=== PATIENT | male | born 1950 | race Caucasian/White ===

== ENCOUNTER 2021-07-11 12:00 | Inpatient (IN) ==
[2021-07-11] MEDS ORDERED: Isovue-370 500 ML BOTTLE IVP ONE (12:25)
[2021-07-11 12:44] LABS: VBG HCO3 25 mEq/L (21-27); VBG PCO2 46 mmHg (41-51); VBG PH 7.34 pH Units (7.32-7.42); VBG PO2 78 mmHg (25-50)
[2021-07-11 12:45] LABS: Basophils # 0.1 K/mcL (0.0-0.2); Basophils % 0.5 %; Eosinophils # 0.1 K/mcL (0.0-0.6); Eosinophils % 0.9 %; Hematocrit 27.8 % (37.5-50.1); Hemoglobin 8.7 g/dL (12.9-16.9); Immature Granulocytes % 0.8 % (0-4); Lymphocytes # 0.7 K/mcL (0.6-4.6); Lymphocytes % 5.5 %; Mean Corpuscular HGB Conc 31.3 g/dL (31.6-35.5); Mean Corpuscular Hemoglobin 28.9 pg (28.0-33.3); Mean Corpuscular Volume 92.4 fL (83.0-100.0); Mean Platelet Volume 9.8 fL (9.4-12.4); Monocytes % 7.7 %; Neutrophils # 11.2 K/mcL (1.6-8.9); Platelet Count 302 K/mcL (140-400); Red Blood Count 3.01 M/mcL (4.19-5.50); Red Cell Distribution Width 14.2 % (11.5-14.5); Segmented Neutrophils % 84.6 %; White Blood Count 13.2 K/mcL (4.3-11.1)
[2021-07-11 12:55] LABS: Prothrombin Time 11.4 Seconds (9.4-12.1)
[2021-07-11 12:58] LABS: Activated Partial Thrombo Time 44.2 Seconds (26.0-36.0)
[2021-07-11 13:24] LABS: Bacteria,Urine Few per hpf (None-Few); Bilirubin,Urine Negative (Negative); Blood,Urine Negative (Negative); Clarity,Urine Clear (Clear); Color,Urine Yellow (Yellow); Glucose,Urine (UA) >=1000 mg/dL (Normal); Ketones,Urine Negative (Negative); Leukocyte Esterase,Urine Negative (Negative); Mucus,Urine Few per lpf (None-Few); Nitrite,Urine Negative (Negative); PH,Urine 5.5 pH Units (5.0-8.0); Protein,Urine 100 mg/dL (Neg-Trace); RBC,Urine 0-3 per hpf (0-3); Specific Gravity,Urine 1.021 (1.010-1.025); Squamous Epithelial Cell,Urine Few per hpf (None-Few); Urobilinogen,Urine Normal (Normal); WBC,Urine 0-3 per hpf (0-3)
[2021-07-11 13:25] LABS: Sperm,Urine Present per hpf (None Seen)
[2021-07-11 13:31] LABS: Albumin 3.3 g/dL (3.5-5.7); Albumin/Globulin Ratio 1.3 (1.1-2.2); Bilirubin,Total 0.4 mg/dL (0.3-1.0); Calcium 9.3 mg/dL (8.6-10.3); Globulin 2.5 g/dL (2.4-3.5); Potassium 5.2 mEq/L (3.5-5.1); Total Protein 5.8 g/dL (6.4-8.9)
[2021-07-11 14:17] LABS: Influenza A PCR Negative (Negative); Influenza B PCR Negative (Negative); Resp. Syncytial Virus PCR Negative (Negative)
[2021-07-11 14:18] LABS: SARS-CoV-2 by PCR (In House) Negative (Negative)
[2021-07-11] MEDS ORDERED: Cefepime HCl 2,000 MG in 0.9 % Sodium Chloride Mini Bag 100 ML IVPB ONE (15:06)
[2021-07-11] MEDS ORDERED: Vancomycin 2,000 MG/520 ML IV.SOLN IVPB ONE (16:40)
[2021-07-11] MEDS ORDERED: 0.9 % Sodium Chloride 500 ML IVC ONE (17:13)
[2021-07-11] MEDS ORDERED: Ondansetron 4 MG/2 ML VIAL IVP PRN (17:58)
[2021-07-11] MEDS ORDERED: Naloxone 0.4 MG/ML INJ IVP PRN (17:58)
[2021-07-11] MEDS ORDERED: Ringers Solution, Lactated 1,000 ML IVC SCH (18:00)
[2021-07-11] MEDS ORDERED: Acetaminophen 325 MG TABLET PO PRN (18:01)
[2021-07-11] MEDS ORDERED: Haloperidol Lactate 5 MG/ML VIAL IVP ONE ×2 (18:02→18:25)
[2021-07-11] MEDS ORDERED: Dextrose Gel 15 GM/37.5 ML TUBE PO PRN ×2 (18:05)
[2021-07-11] MEDS ORDERED: *HR* Dextrose 50 % in Water (Syg) 50 ML SYRINGE IVP PRN (18:05)
[2021-07-11] MEDS ORDERED: D5% in Water 1,000 ML IVC PRN (18:05)
[2021-07-11 18:41] LABS: Adenovirus Not Detected (Not Detect); Bordetella Pertussis Not Detected (Not Detect); Chlamydophila pneumoniae Not Detected (Not Detect); Coronavirus 229E Not Detected (Not Detect); Coronavirus HKU1 Not Detected (Not Detect); Coronavirus NL63 Not Detected (Not Detect); Coronavirus OC43 Not Detected (Not Detect); Human Metapneumovirus Not Detected (Not Detect); Human Rhinovirus/Enterovirus Not Detected (Not Detect); Influenza A Subtype 2009 H1 Not Detected (Not Detect); Influenza B Not Detected (Not Detect); Mycoplasma pneumoniae Not Detected (Not Detect); Parainfluenza Virus 1 Not Detected (Not Detect); Parainfluenza Virus 2 Not Detected (Not Detect); Parainfluenza Virus 3 Not Detected (Not Detect); Parainfluenza Virus 4 Not Detected (Not Detect); Respiratory Syncytial Virus Not Detected (Not Detect); SARS-CoV-2 Not Detected (Not Detect)
[2021-07-11] MEDS: *HR* Heparin 5,000 UNIT/ML VIAL SQ SCH (21:32)
[2021-07-11] MEDS: Gabapentin 300 MG CAPSULE PO SCH (21:32)
[2021-07-11] MEDS: Piperacillin/Tazobactam 3.375 GM in 0.9 % Sodium Chloride Mini Bag 100 ML IVPB SCH (21:32)
[2021-07-11] MEDS: Ipratropium/Albuterol Neb 3 ML IH SCH (21:48)
[2021-07-11] MEDS: Insulin LISPRO 300 UNITS/3 ML VIAL SUBQ SCH ×2 (21:50→21:51)
[2021-07-11] MEDS ORDERED: *HR* LORazepam 2 MG/ML VIAL IVP ONE (22:16)
[2021-07-12] MEDS: Piperacillin/Tazobactam 3.375 GM in 0.9 % Sodium Chloride Mini Bag 100 ML IVPB SCH ×3 (02:50→17:47)
[2021-07-12] MEDS ORDERED: *HR* LORazepam 2 MG/ML VIAL IVP ONE (04:11)
[2021-07-12] MEDS: Ipratropium/Albuterol Neb 3 ML IH SCH ×4 (04:15→21:08)
[2021-07-12] MEDS: *HR* Heparin 5,000 UNIT/ML VIAL SQ SCH ×3 (05:50→22:08)
[2021-07-12 06:01] LABS: Basophils % 0.4 %; Eosinophils # 0.2 K/mcL (0.0-0.6); Eosinophils % 1.8 %; Hematocrit 26.4 % (37.5-50.1); Immature Granulocytes % 0.4 % (0-4); Lymphocytes % 10.4 %; Mean Corpuscular HGB Conc 30.3 g/dL (31.6-35.5); Mean Corpuscular Hemoglobin 27.9 pg (28.0-33.3); Mean Platelet Volume 10.1 fL (9.4-12.4); Monocytes % 11.1 %; Neutrophils # 6.9 K/mcL (1.6-8.9); Nucleated Red Blood Cells 0.2 /100 WBC (0); Platelet Count 271 K/mcL (140-400); Red Blood Count 2.87 M/mcL (4.19-5.50); Red Cell Distribution Width 14.3 % (11.5-14.5); Segmented Neutrophils % 75.9 %; White Blood Count 9.1 K/mcL (4.3-11.1)
[2021-07-12 06:15] LABS: Albumin/Globulin Ratio 1.3 (1.1-2.2); Bilirubin,Total 0.4 mg/dL (0.3-1.0); Calcium 8.6 mg/dL (8.6-10.3); Globulin 2.4 g/dL (2.4-3.5); Magnesium 2.4 mg/dL (1.6-2.6); Potassium 4.6 mEq/L (3.5-5.1); Total Protein 5.4 g/dL (6.4-8.9)
[2021-07-12 06:28] LABS: Thyroid Stimulating Hormone 1.3 mcIU/mL (0.340-5.600)
[2021-07-12 06:40] LABS: Folate > 22.3 ng/mL (3.0-16.0); Vitamin B12 225 pg/mL (250-1100)
[2021-07-12] MEDS ORDERED: Iron Sucrose Complex 400 MG in 0.9 % Sodium Chloride 250 ML IVPB ONE (07:20)
[2021-07-12 08:49] LABS: ABG Base Excess 0 mEq/L (-2 to 3); ABG HCO3 25 mEq/L (21-27); ABG Oxygen Saturation 98 % (95-98); ABG PCO2 41 mmHg (35-45); ABG PO2 114 mmHg (85-104); ABG TCO2 26 mEq/L (20-26)
[2021-07-12] MEDS: Gabapentin 300 MG CAPSULE PO SCH ×3 (09:11→22:07)
[2021-07-12] MEDS: Aspirin 81 MG TAB.CHEW PO SCH (09:11)
[2021-07-12] MEDS: Cyanocobalamin (B-12) 1,000 MCG TABLET PO SCH (09:11)
[2021-07-12] MEDS: Insulin LISPRO 300 UNITS/3 ML VIAL SUBQ SCH ×4 (09:47→22:05)
[2021-07-12] MEDS: methylPREDNISolone 125 MG/2 ML VIAL IVP SCH ×2 (12:08→17:46)
[2021-07-12] MEDS ORDERED: Furosemide 40 MG/4 ML VIAL IVP ONE (12:36)
[2021-07-12] MEDS: carvediloL 6.25 MG TABLET PO SCH (17:45)
[2021-07-12] MEDS ORDERED: Vancomycin 1,750 MG/517.5 ML IV.SOLN IVPB SCH (18:00)
[2021-07-12] MEDS: Primidone 50 MG TABLET PO SCH (22:07)
[2021-07-13 03:39] LABS: Basophils % 0.1 %; Hematocrit 27.8 % (37.5-50.1); Hemoglobin 8.8 g/dL (12.9-16.9); Immature Granulocytes % 1.3 % (0-4); Lymphocytes # 0.4 K/mcL (0.6-4.6); Lymphocytes % 3.7 %; Mean Corpuscular HGB Conc 31.7 g/dL (31.6-35.5); Mean Corpuscular Hemoglobin 28.5 pg (28.0-33.3); Mean Platelet Volume 9.9 fL (9.4-12.4); Monocytes # 0.4 K/mcL (0.0-1.3); Monocytes % 3.4 %; Neutrophils # 9.8 K/mcL (1.6-8.9); Platelet Count 311 K/mcL (140-400); Red Blood Count 3.09 M/mcL (4.19-5.50); Red Cell Distribution Width 13.8 % (11.5-14.5); Segmented Neutrophils % 91.5 %; White Blood Count 10.8 K/mcL (4.3-11.1)
[2021-07-13 03:41] LABS: Calcium 8.9 mg/dL (8.6-10.3); Potassium 3.8 mEq/L (3.5-5.1)
[2021-07-13] MEDS: Ipratropium/Albuterol Neb 3 ML IH SCH ×4 (04:00→21:38)
[2021-07-13] MEDS: methylPREDNISolone 125 MG/2 ML VIAL IVP SCH ×3 (04:16→21:09)
[2021-07-13] MEDS: Piperacillin/Tazobactam 3.375 GM in 0.9 % Sodium Chloride Mini Bag 100 ML IVPB SCH ×3 (04:17→21:07)
[2021-07-13 05:34] LABS: ABG Base Excess -1 mEq/L (-2 to 3); ABG HCO3 24 mEq/L (21-27); ABG Oxygen Saturation 89 % (95-98); ABG PCO2 39 mmHg (35-45); ABG PH 7.39 pH Units (7.32-7.45); ABG PO2 57 mmHg (85-104); ABG TCO2 25 mEq/L (20-26)
[2021-07-13] MEDS: *HR* Heparin 5,000 UNIT/ML VIAL SQ SCH ×3 (06:17→21:11)
[2021-07-13] MEDS: carvediloL 6.25 MG TABLET PO SCH ×2 (08:20→17:15)
[2021-07-13] MEDS: *HR* HYDROcodone/Acet 7.5/325 mg TABLET PO PRN (08:20)
[2021-07-13] MEDS: Primidone 50 MG TABLET PO SCH ×2 (08:20→21:09)
[2021-07-13] MEDS: Gabapentin 300 MG CAPSULE PO SCH ×3 (08:20→21:10)
[2021-07-13] MEDS: Aspirin 81 MG TAB.CHEW PO SCH (08:20)
[2021-07-13] MEDS: Insulin LISPRO 300 UNITS/3 ML VIAL SUBQ SCH ×4 (08:21→21:02)
[2021-07-13] MEDS: Cyanocobalamin (B-12) 1,000 MCG TABLET PO SCH (08:21)
[2021-07-14 00:58] LABS: Influenza A PCR Negative (Negative); Influenza B PCR Negative (Negative); Resp. Syncytial Virus PCR Negative (Negative)
[2021-07-14 01:00] LABS: SARS-CoV-2 by PCR (In House) Negative (Negative)
[2021-07-14] MEDS: methylPREDNISolone 125 MG/2 ML VIAL IVP SCH ×3 (02:04→19:35)
[2021-07-14] MEDS: Piperacillin/Tazobactam 3.375 GM in 0.9 % Sodium Chloride Mini Bag 100 ML IVPB SCH ×3 (04:21→19:36)
[2021-07-14] MEDS: Ipratropium/Albuterol Neb 3 ML IH SCH ×4 (04:54→22:31)
[2021-07-14] MEDS: *HR* Heparin 5,000 UNIT/ML VIAL SQ SCH ×3 (06:01→19:38)
[2021-07-14 06:53] LABS: Basophils % 0.1 %; Hematocrit 27.8 % (37.5-50.1); Hemoglobin 8.6 g/dL (12.9-16.9); Immature Granulocytes % 1.8 % (0-4); Lymphocytes # 0.6 K/mcL (0.6-4.6); Lymphocytes % 3.1 %; Mean Corpuscular HGB Conc 30.9 g/dL (31.6-35.5); Mean Corpuscular Hemoglobin 27.7 pg (28.0-33.3); Mean Corpuscular Volume 89.7 fL (83.0-100.0); Mean Platelet Volume 9.8 fL (9.4-12.4); Monocytes # 0.8 K/mcL (0.0-1.3); Monocytes % 4.2 %; Neutrophils # 16.8 K/mcL (1.6-8.9); Nucleated Red Blood Cells 0.2 /100 WBC (0); Platelet Count 411 K/mcL (140-400); Red Cell Distribution Width 14.1 % (11.5-14.5); Segmented Neutrophils % 90.8 %
[2021-07-14 06:54] LABS: White Blood Count 18.5 K/mcL (4.3-11.1)
[2021-07-14] MEDS ORDERED: Haloperidol Lactate 5 MG/ML VIAL IVP ONE (07:35)
[2021-07-14] MEDS: carvediloL 6.25 MG TABLET PO SCH ×2 (08:30→17:25)
[2021-07-14] MEDS: Cyanocobalamin (B-12) 1,000 MCG TABLET PO SCH (08:31)
[2021-07-14] MEDS: Primidone 50 MG TABLET PO SCH ×2 (08:31→19:36)
[2021-07-14] MEDS: Gabapentin 300 MG CAPSULE PO SCH ×3 (08:31→19:36)
[2021-07-14] MEDS: Aspirin 81 MG TAB.CHEW PO SCH (08:31)
[2021-07-14] MEDS: Insulin LISPRO 300 UNITS/3 ML VIAL SUBQ SCH ×4 (08:32→20:43)
[2021-07-14] MEDS ORDERED: Furosemide 40 MG/4 ML VIAL IVP SCH (09:00)
[2021-07-14] MEDS: polyethylene glycoL 3350 17 GM POWD.PACK PO SCH (11:34)
[2021-07-14] MEDS: *HR* HYDROcodone/Acet 7.5/325 mg TABLET PO PRN (21:40)
[2021-07-15 01:53] LABS: Basophils % 0.1 %; Hematocrit 25.6 % (37.5-50.1); Hemoglobin 8.3 g/dL (12.9-16.9); Immature Granulocytes % 2.9 % (0-4); Lymphocytes # 0.7 K/mcL (0.6-4.6); Mean Corpuscular HGB Conc 32.4 g/dL (31.6-35.5); Mean Corpuscular Hemoglobin 29.1 pg (28.0-33.3); Mean Corpuscular Volume 89.8 fL (83.0-100.0); Mean Platelet Volume 9.4 fL (9.4-12.4); Monocytes # 0.9 K/mcL (0.0-1.3); Neutrophils # 15.9 K/mcL (1.6-8.9); Nucleated Red Blood Cells 0.3 /100 WBC (0); Platelet Count 390 K/mcL (140-400); Red Blood Count 2.85 M/mcL (4.19-5.50); White Blood Count 18.1 K/mcL (4.3-11.1)
[2021-07-15 02:11] LABS: Calcium 8.5 mg/dL (8.6-10.3); Potassium 3.9 mEq/L (3.5-5.1)
[2021-07-15] MEDS: methylPREDNISolone 125 MG/2 ML VIAL IVP SCH ×3 (03:09→15:00)
[2021-07-15] MEDS: Piperacillin/Tazobactam 3.375 GM in 0.9 % Sodium Chloride Mini Bag 100 ML IVPB SCH ×3 (03:10→21:07)
[2021-07-15] MEDS: Ipratropium/Albuterol Neb 3 ML IH SCH ×4 (04:38→20:50)
[2021-07-15] MEDS: *HR* Heparin 5,000 UNIT/ML VIAL SQ SCH ×3 (06:03→21:07)
[2021-07-15] MEDS ORDERED: Iron Sucrose Complex 200 MG in 0.9 % Sodium Chloride 100 ML IVPB ONE (07:25)
[2021-07-15] MEDS: Cyanocobalamin (B-12) 1,000 MCG TABLET PO SCH (08:44)
[2021-07-15] MEDS: Aspirin 81 MG TAB.CHEW PO SCH (08:44)
[2021-07-15] MEDS: Primidone 50 MG TABLET PO SCH ×2 (08:45→21:07)
[2021-07-15] MEDS: Gabapentin 300 MG CAPSULE PO SCH ×3 (08:45→21:07)
[2021-07-15] MEDS: carvediloL 6.25 MG TABLET PO SCH ×2 (08:46→17:33)
[2021-07-15] MEDS: polyethylene glycoL 3350 17 GM POWD.PACK PO SCH (08:49)
[2021-07-15] MEDS: Insulin LISPRO 300 UNITS/3 ML VIAL SUBQ SCH ×3 (08:52→17:37)
[2021-07-15] MEDS ORDERED: Perflutren Lipid Microsphere 1.3 ML in 0.9 % Sodium Chloride 8.7 ML IVP PRN ×2 (10:45→15:29)
[2021-07-15] MEDS ORDERED: Insulin LISPRO 300 UNITS/3 ML VIAL SUBQ SCH (11:00)
[2021-07-15] MEDS ORDERED: Furosemide 20 MG/2 ML VIAL IVP ONE (14:27)
[2021-07-15] MEDS: Doxycycline 100 MG CAPSULE PO SCH ×2 (15:22→21:06)
[2021-07-16] MEDS: Doxycycline 100 MG in 0.9 % Sodium Chloride Mini Bag 100 ML IVPB SCH ×2 (02:22→13:20)
[2021-07-16] MEDS: methylPREDNISolone 125 MG/2 ML VIAL IVP SCH ×2 (02:22→12:35)
[2021-07-16] MEDS: Piperacillin/Tazobactam 3.375 GM in 0.9 % Sodium Chloride Mini Bag 100 ML IVPB SCH ×3 (04:00→23:22)
[2021-07-16] MEDS: Ipratropium/Albuterol Neb 3 ML IH SCH ×4 (04:17→21:08)
[2021-07-16 05:45] LABS: Basophils % 0.2 %; Eosinophils % 0.1 %; Hematocrit 26.9 % (37.5-50.1); Hemoglobin 8.5 g/dL (12.9-16.9); Lymphocytes # 0.9 K/mcL (0.6-4.6); Lymphocytes % 5.5 %; Mean Corpuscular HGB Conc 31.6 g/dL (31.6-35.5); Mean Corpuscular Volume 91.8 fL (83.0-100.0); Mean Platelet Volume 9.6 fL (9.4-12.4); Monocytes # 1.1 K/mcL (0.0-1.3); Monocytes % 6.8 %; Neutrophils # 13.3 K/mcL (1.6-8.9); Nucleated Red Blood Cells 1.1 /100 WBC (0); Platelet Count 394 K/mcL (140-400); Red Blood Count 2.93 M/mcL (4.19-5.50); Red Cell Distribution Width 14.5 % (11.5-14.5); Segmented Neutrophils % 83.4 %; White Blood Count 15.9 K/mcL (4.3-11.1)
[2021-07-16 06:03] LABS: Calcium 8.3 mg/dL (8.6-10.3)
[2021-07-16] MEDS: *HR* Heparin 5,000 UNIT/ML VIAL SQ SCH ×3 (06:29→21:32)
[2021-07-16] MEDS: carvediloL 6.25 MG TABLET PO SCH ×2 (07:40→15:59)
[2021-07-16] MEDS: Cyanocobalamin (B-12) 1,000 MCG TABLET PO SCH (07:47)
[2021-07-16] MEDS: Aspirin 81 MG TAB.CHEW PO SCH (07:47)
[2021-07-16] MEDS: Gabapentin 300 MG CAPSULE PO SCH ×3 (07:47→21:32)
[2021-07-16] MEDS: Primidone 50 MG TABLET PO SCH ×2 (07:47→21:32)
[2021-07-16] MEDS: Furosemide 40 MG/4 ML VIAL IVP SCH (07:48)
[2021-07-16] MEDS: polyethylene glycoL 3350 17 GM POWD.PACK PO SCH (07:49)
[2021-07-16] MEDS: Insulin LISPRO 300 UNITS/3 ML VIAL SUBQ SCH ×3 (08:04→16:05)
[2021-07-16] MEDS ORDERED: Doxycycline 100 MG CAPSULE PO ONE (21:00)
[2021-07-16] MEDS ORDERED: Insulin LISPRO 300 UNITS/3 ML VIAL SUBQ SCH (21:00)
[2021-07-17] MEDS ORDERED: Doxycycline 100 MG in 0.9 % Sodium Chloride Mini Bag 100 ML IVPB SCH (01:00)
[2021-07-17] MEDS: Ipratropium/Albuterol Neb 3 ML IH SCH ×2 (04:53→09:55)
[2021-07-17] MEDS: *HR* Heparin 5,000 UNIT/ML VIAL SQ SCH ×2 (05:59→13:37)
[2021-07-17] MEDS: Doxycycline 100 MG CAPSULE PO SCH ×2 (05:59→18:02)
[2021-07-17 07:50] LABS: Basophils % 0.3 %; Eosinophils # 0.2 K/mcL (0.0-0.6); Eosinophils % 1.3 %; Hematocrit 27.9 % (37.5-50.1); Hemoglobin 8.8 g/dL (12.9-16.9); Immature Granulocytes % 3.8 % (0-4); Lymphocytes # 1.6 K/mcL (0.6-4.6); Lymphocytes % 11.5 %; Mean Corpuscular HGB Conc 31.5 g/dL (31.6-35.5); Mean Corpuscular Hemoglobin 28.6 pg (28.0-33.3); Mean Corpuscular Volume 90.6 fL (83.0-100.0); Mean Platelet Volume 9.5 fL (9.4-12.4); Monocytes % 7.2 %; Neutrophils # 10.4 K/mcL (1.6-8.9); Nucleated Red Blood Cells 1.2 /100 WBC (0); Platelet Count 394 K/mcL (140-400); Red Blood Count 3.08 M/mcL (4.19-5.50); Red Cell Distribution Width 14.6 % (11.5-14.5); Segmented Neutrophils % 75.9 %; White Blood Count 13.7 K/mcL (4.3-11.1)
[2021-07-17 08:09] LABS: Calcium 8.4 mg/dL (8.6-10.3)
[2021-07-17] MEDS ORDERED: predniSONE 20 MG TABLET PO SCH (09:00)
[2021-07-17] MEDS: Piperacillin/Tazobactam 3.375 GM in 0.9 % Sodium Chloride Mini Bag 100 ML IVPB SCH ×2 (09:44→13:38)
[2021-07-17] MEDS: polyethylene glycoL 3350 17 GM POWD.PACK PO SCH (09:45)
[2021-07-17] MEDS: Gabapentin 300 MG CAPSULE PO SCH ×2 (09:45→13:38)
[2021-07-17] MEDS: Cyanocobalamin (B-12) 1,000 MCG TABLET PO SCH (09:46)
[2021-07-17] MEDS: Aspirin 81 MG TAB.CHEW PO SCH (09:46)
[2021-07-17] MEDS: Primidone 50 MG TABLET PO SCH (09:46)
[2021-07-17] MEDS: Furosemide 40 MG/4 ML VIAL IVP SCH (09:47)
[2021-07-17] MEDS: carvediloL 6.25 MG TABLET PO SCH ×2 (09:47→18:03)
[2021-07-17] MEDS: Insulin LISPRO 300 UNITS/3 ML VIAL SUBQ SCH ×3 (09:48→18:31)
[2021-07-17 19:09] VITALS: BP 156/55; PULSE 72; TEMP 98; O2SAT 92
== END 2021-07-17 20:03 | disposition home or self-care (01) | DRG 871 ==
LOC: EMEROOARM 12:00 → 2ANU 12:00 → SUATTDRO 18:28 → 2ANU 18:54
PROVIDERS: ADMIT General Practice; ATTEND Family Medicine